=== PATIENT | male | born 1975 | race Two or more races ===

== ENCOUNTER 2019-10-22 15:04 | Emergency (ER) | payer MEDICARE, OTHER ==
[~2019-10-22] VITALS: Ht 152.4 cm; Wt 75.3 kg
--- NOTE | 2019-10-22 15:15 | NUR ---
PT BIB [facility] 84 Homeless "found running/weaving on [address] ?meth abuse" PT IS AAOX0, NOT IN RESPIRATORY DISTRESS, V/S STABLE, KEPT RESTED AND COMFORTABLE, WILL CONTINUE TO MONITOR.
--- NOTE | 2019-10-22 15:45 | NUR ---
URINE SPECIMEN COLLECTED AND SENT TO LAB.
[2019-10-22 16:26] LABS: BASOPHILS # (AUTO) 0.1 /CMM (0.0-0.2); BASOPHILS % (AUTO) 1.3 % (0.0-2.0); EOSINOPHILS % (AUTO) 0.6 % (0.0-6.0); HEMATOCRIT 35 % (39-51); HEMOGLOBIN 12.2 g/dL (13.5-17.5); LYMPHOCYTES # (AUTO) 0.7 /CMM (0.8-4.8); MEAN CORPUSCULAR HGB CONC 35 g/dl (31.0-36.0); MEAN CORPUSCULAR VOLUME 89 fL (80-96); MONOCYTES % (AUTO) 9.8 % (2.0-12.0); NEUTROPHILS # (AUTO) 8.1 /CMM (1.8-8.9); NEUTROPHILS % (AUTO) 81.3 % (43.0-81.0); PLATELET COUNT (AUTO) 197 /CMM (150-450); RED BLOOD CELL COUNT(AUTO) 3.92 MIL/uL (4.5-6.0); WHITE BLOOD COUNT (AUTO) 9.9 K/uL (4.3-11.0)
[2019-10-22] MEDS ORDERED: IV NS 0.9% 1,000 ML BAG IV ONE ×2 (16:30)
[2019-10-22 16:31] LABS: APPEARANCE,URINE Clear (CLEAR); BILIRUBIN,URINE SMALL (NEGATIVE); BLOOD, URINE Moderate Ery/uL (NEGATIVE); COLOR,URINE Other (YELLOW); KETONES,URINE 15 (NEGATIVE); LEUKOCYTE ESTERASE ,URINE Negative (NEGATIVE); NITRITE, URINE Negative (NEGATIVE); PH,URINE 5.5 (5.0-8.0); PROTEIN,URINE 30 mg/dl (NEGATIVE); UGLUCOSE Negative (NEGATIVE)
[2019-10-22 16:35] LABS: CALCIUM, SERUM 8.9 mg/dL (8.5-10.1); CARBON DIOXIDE 26 mmol/L (21-32); CHLORIDE 100 mmol/L (98-107); CREATININE 0.8 mg/dL (0.6-1.3); GLUCOSE 98 mg/dL (74-106); SODIUM SERUM 137 mmol/L (136-145); UREA NITROGEN, BLOOD 20 mg/dL (7-18)
[2019-10-22 16:40] LABS: BACTERIA,URINE 1+ /HPF (None Seen)
[2019-10-22 16:41] LABS: ALANINE AMINOTRANSFERASE 26 U/L (12-78); ALBUMIN 3.9 g/dL (3.4-5.0); ALCOHOL, BLOOD < 3 mg/dL (0-0); ALKALINE PHOSPHATASE 72 U/L (46-116); ASPARTATE AMINOTRANSFERASE 44 U/L (15-37); BAND % (MANUAL) 1 % (0.0-5.0); BILIRUBIN,DIRECT 0.5 mg/dL (0.0-0.2); BILIRUBIN,TOTAL 1.6 mg/dL (0.2-1.0); LYMPHOCYTES % (MANUAL) 6 % (16-48); MONOCYTES % (MANUAL) 8 % (0-11.0); NEUTROPHILS % (MANUAL) 85 (42-76); TOTAL PROTEIN, SERUM 7.7 g/dL (6.4-8.2)
--- NOTE | 2019-10-22 17:20 | NUR ---
IV LINE ESTABLISHED.
[2019-10-22] MEDS ORDERED: diphenhydrAMINE HCL 50 MG/ML VIAL ONE (17:34)
[2019-10-22] MEDS ORDERED: HALOPERIDOL LACTATE INJ 5 MG/ML VIAL ONE (17:34)
[2019-10-22] MEDS ORDERED: LORAZEPAM INJ 2 MG/ML VIAL ONE (17:34)
[2019-10-22 17:46] LABS: ACETAMINOPHEN < 10 ug/ml (10-30)
[2019-10-22] MEDS ORDERED: LORAZEPAM INJ 2 MG/ML VIAL IVP ONE (18:00)
[2019-10-22] MEDS ORDERED: diphenhydrAMINE HCL 50 MG/ML VIAL IV ONE (18:00)
[2019-10-22] MEDS ORDERED: HALOPERIDOL LACTATE INJ 5 MG/ML VIAL IM ONE (18:00)
--- NOTE | 2019-10-22 22:39 | NUR ---
PT RESTING COMFORTABLY IN BED. VITAL SIGNS STABLE. SITTER AT BEDSIDE. WILL CONTINUE TO MONITOR
--- NOTE | 2019-10-23 01:18 | NUR ---
PT RESTING COMFORTABLY IN BED, EASILY AROUSABLE. SPEAKING INCOHERENTLY. VITAL SIGNS STABLE. SITTER AT BEDSIDE. WILL CONTINUE TO MONITOR
--- NOTE | 2019-10-23 03:40 | NUR ---
PT RESTING COMFORTABLY IN BED.VSS. NO ACUTE DISTRESS NOTED. WILLC CONTINUE TO MONITOR
--- NOTE | 2019-10-23 05:33 | NUR ---
PT AWAKE. AAOX4. DENIES SI/HI AT THIS TIME. CALLED CIAR[facility] HERRON FOR EVALUATION. EN ROUTE TO HOSPITAL
--- NOTE | 2019-10-23 05:56 | NUR ---
PT RESTING COMFORTABLY IN BED. VSS. NO ACUTE DISTRESS NOTED. WILL CONTINUE TO MONITOR. SITTER AT BEDSIDE FOR SAFETY
--- NOTE | 2019-10-23 06:43 | NUR ---
[facility] HERRON AT BEDSIDE FOR EVALUATION
--- NOTE | 2019-10-23 07:19 | NUR ---
PT RESTING COMFORTABLY IN BED. EASILY AROUSABLE BY VOICE. VSS. NO ACUTE DISTRESS NOTED. WILL CONTINUE TO MONITOR. SITTER AT BEDSIDE FOR SAFETY
--- NOTE | 2019-10-23 09:14 | NUR ---
PT SLEEPING IN BED. VSS. NO ACUTE DISTRESS NOTED. WILL CONTINUE TO MONITOR. SITTER AT BEDSIDE FOR SAFETY
--- NOTE | 2019-10-23 11:01 | NUR ---
PATIENT IN BED ASLEEP. VSS. NO ACUTE DISTRESS NOTED. WILL CONTINUE TO MONITOR. SITTER AT BEDSIDE FOR SAFETY
--- NOTE | 2019-10-23 12:11 | NUR ---
OFFERED FOOD TRAY, REFUSED
--- NOTE | 2019-10-23 12:32 | NUR ---
PATIENT EATING LUNCH TRAY IN BED.
--- NOTE | 2019-10-23 13:16 | NUR ---
IV removed. Catheter intact and site benign. Pressure and 4x4 applied to site. No bleeding noted. Patient given written and verbal discharge instructions. Patient verbalizes understanding of instructions. Patient is ambulatory with steady gait. Refuses offer of [facility] placement. Patient given list of available shelters in surrounding area. Patient in ptoper clothing upon discharge, all belongings given to the patient, name band removed
[2019-10-23 13:19] VITALS: BP 106/54
== END 2019-10-23 13:20 | disposition home or self-care (01) ==
LOC: ER 15:05
DX: F15.121 Other stimulant abuse with intoxication delirium (principal); Z59.0 Homelessness
CPT/HCPCS: 36415; 80048; 80076; 80305; 80307; 80329; 81001; 85025; 87086; 96372; 96374; 96375; 99285; G0480; J1200; J1630; J2060; J7030; 81000-TC